=== PATIENT | male | born 1945 | race Caucasian/White ===

== ENCOUNTER 2017-01-07 09:15 | Outpatient (CLI) | payer MEDICARE ==
--- NOTE | 2017-01-07 15:03 | NM ---
RADIONUCLIDE BONE SCAN: Date: 01/07/17 HISTORY: Prostate cancer. Back pain. Abnormal MRI. COMPARISON: 07/08/13. FINDINGS: Heterogeneous uptake is present throughout the shoulders and spine. Uptake at the left lower cervica l spine on the previous exam is much less pronounced on the current study. In region of abnormality described at the lumbar spine and thoracic spine on report from recent MRI from [place] dated 12/13/16, no abnormal uptake is apparent to suggest metastatic disease. Those dustin ges are not available for direct correlation. IMPRESSION: No scintigraphic evidence of skeletal metastasis. POS: SANDY
== END 2017-01-07 09:16 | disposition home or self-care (01) ==
LOC: NM 09:15
PROVIDERS: ATTEND Radiology Radiation Oncology
DX: C61 Malignant neoplasm of prostate (principal); C79.51 Secondary malignant neoplasm of bone; M54.9 Dorsalgia, unspecified
CPT/HCPCS: 78306; 80053; 82248; 83615; 84100; 84153; 84550; A9503; 36415

== ENCOUNTER 2017-04-02 06:58 | Outpatient (CLI) | payer MEDICARE ==
--- NOTE | 2017-04-02 11:43 | MRI ---
MRI LUMBAR SPINE WITHOUT CONTRAST: HISTORY: Metastatic prostate cancer to L4. COMPARISON: None. CORRELATION: Bone scan from 01/07/2017 and lumbar spine radiograph series from 08/31/2015. TECHNIQUE: A lumbar spine MRI is performed without intravenous Gadolinium administration. Multisequential, mult iplanar imaging is performed. FINDINGS: There is heterogeneous marrow signal intensity of the visualized distal thoracic vertebra, L1, L2, an d L3 vertebral bodies. No associated STIR signal hyperintensity. There is intrinsic T1 and T2 hyper intensity involving the inferior aspect of L3, the L4 vertebral body, and the majority of the L5 vert ebral body, as well as the visualized sacrum. No significant STIR hyperintensity. Post treatment ch alessandra is favored. There is no evidence of fracture. There is 6 mm of anterolisthesis of L4 upon L5. There is symmetric signal intensity of the psoas muscles. There is multiple hyperintensity of the le ft and right renal pelvis, compatible with bilateral parapelvic cysts or hydronephrosis. Evaluation is limited. The conus medullaris terminates at the mid L1 level. T12-L1: Adequate disk hydration. No significant central canal stenosis. the foramina are patent. L1-L2: Adequate disk hydration. No significant central canal stenosis. The foramina are patent. L2-L3: Adequate disk hydration. No significant central canal stenosis. The foramina are patent. L3-L4: Adequate disk hydration. No significant central canal stenosis. Mild facet hypertrophy. No significant central canal stenosis. The foramina are patent. L4-L5: Desiccation with mild loss of disk space height. Generalized disk bulge, ligamentum flavum t hickening, and facet hypertrophy result in mild central canal stenosis. The right subarticular zone is patent. Minimal narrowing of the left subarticular zone, secondary to disk material and post trau matic hypertrophy. Mass effect without complete obscuration of the traversing left L5 nerve root. T he right neural foramen is mildly narrowed. The left neural foramen is minimally narrowed. L5-S1: Disk desiccation without significant loss of disk space height. There is intrinsic T2 and ST IR hyperintensity along the posterior margin of the L5 disk, at the level of the disk bulge. A small annular fissure is favored. Minimal narrowing of both subarticular zones. Disk material abuts but does not obscure either traversing S1 nerve root. No high grade central canal stenosis. Moderate bi lateral foraminal narrowing. Probable small cyst posterior to the right lamina at L5, of no clinical significance. IMPRESSION: 1. Post treatment fatty marrow involving the L4 and L5 vertebral bodies and the visualized sacrum. 2. T1 marrow signal hypointensity of the upper lumbar spine and lower thoracic spine without associa mookie STIR hyperintensity. Findings are nonspecific. A bone scan performed in December 2016 was negati ve. 3. No evidence of a lumbar spine fracture. 4. Degenerative changes of the lumbar spine, as above. POS: OFF
== END 2017-04-02 06:59 | disposition home or self-care (01) ==
LOC: MRI 06:58
PROVIDERS: ATTEND Radiology Radiation Oncology
DX: C61 Malignant neoplasm of prostate (principal); C79.51 Secondary malignant neoplasm of bone; M47.816 Spondylosis without myelopathy or radiculopathy, lumbar region
CPT/HCPCS: 72148; 72158

== ENCOUNTER 2017-09-18 15:25 | Outpatient (CLI) | payer MEDICARE ==
--- NOTE | 2017-09-18 16:26 | RAD ---
ABDOMEN ONE VIEW: 09/18/17 HISTORY: Stones. Preop. COMPARISON: 09/16/17. FINDINGS: Nonspecific bowel gas pattern. Degenerative changes of the lumbar spine and hips. Multiple stones ove r the gallbladder lumen. A lobular 0.7 cm calculus just inferior to the right L2 transverse process correlates with the right ureteropelvic junction calculus seen on recent CT. Smaller calcifications over the right renal shadow are again demonstrated. IMPRESSION: 1. Right renal calculi. 2. Cholelithiasis. POS: SANDY
[2017-09-18 16:27] LABS: Platelet Count 151 thou/uL (130-400)
[2017-09-18 17:02] LABS: ADP 120 SEC (39-127)
[2017-09-18 17:03] LABS: ADP Status Message No Message
== END 2017-09-18 15:26 | disposition home or self-care (01) ==
LOC: LABBT 15:25
PROVIDERS: ATTEND Urology
DX: Z01.818 Encounter for other preprocedural examination (principal); N20.2 Calculus of kidney with calculus of ureter
CPT/HCPCS: 74018; 85576

== ENCOUNTER 2017-09-21 10:56 | Observation (INO) | payer MEDICARE ==
[2017-09-21] MEDS ORDERED: Ondansetron HCl/PF 4 MG/2 ML Vial ONE (11:05)
[2017-09-21 12:10] LABS: #Eosinphils 0.1 thou/uL (0.0-0.7); #Lymphocytes 0.6 thou/uL (1.20-3.40); #Monocytes 0.8 thou/uL (0.11-0.59); %Basophils 0.3 % (0.0-1.0); %Eosinophils 0.7 % (0.0-10.0); %Lymphocytes 5.8 % (21.0-51.0); %Monocytes 7.9 % (0.0-10.0); %Neutrophils 85.3 % (42.0-75.0); Mean Corpuscular Hemoglobin 33.8 pg (27.0-31.0); Mean Corpuscular Volume 96.6 fL (78.0-98.0); Platelet Count 235 thou/uL (130-400); RBC Distribution Width 17.9 % (11.5-14.5); Red Blood Cell (RBC) Count 3.84 mill/uL (4.70-6.10); White Blood Cell (WBC) Count 10.6 thou/uL (4.8-10.8)
[2017-09-21 12:29] LABS: ALT (SGPT) 19 U/L (8-55); AST (SGOT) 21 U/L (5-34); Albumin 3.9 g/dL (3.4-4.8); Alkaline Phosphatase 59 U/L (40-150); Anion Gap 15 mmol/L (10-20); BUN (Urea Nitrogen) 21 mg/dL (8.4-25.7); Bilirubin, Total 1.4 mg/dL (0.2-1.2); Calc. Creatinine Clearance 0 mL/min (70-130); Calcium 8.8 mg/dL (7.8-10.44); Carbon Dioxide 22 mmol/L (23-31); Chloride 106 mmol/L (98-107); Estimated GFR-MDRD 61; Globulin 3.8 g/dL (2.4-3.5); Glucose 154 mg/dL (83-110); Lipase 5 U/L (8-78); Potassium 4.4 mmol/L (3.5-5.1); Protein, Total 7.7 g/dL (5.8-8.1); Sodium 139 mmol/L (136-145)
[2017-09-21 12:52] LABS: Bilirubin Small (Negative); Blood, Urine Negative (Negative); Clarity CLEAR (Clear); Glucose, Urine (Dipstick) Negative (Negative); Leukocyte Negative (Negative); Nitrite Negative (Negative); Protein, Urine (Dipstick) 30 mg/dL (Neg-Trace); Specific Gravity, Urine 1.027 (1.002-1.036)
[2017-09-21 12:54] LABS: Bacteria/HPF None Seen HPF (None Seen); Hyaline Casts/LPF 0-3 HYALINE CAST LPF (0-3 Hyaline); Pathc Cast-AUWi Flag 0.14 (0-2.49); RBC/HPF 0-3 HPF (0-3); Squamous Epithelial 0-3 HPF (0-3); WBC/HPF 0-3 HPF (0-3)
[2017-09-21 13:04] LABS: Renal Epithelial None Seen HPF (0-3); Transitional Epithelial NONE SEEN HPF (0-3)
[2017-09-21 14:48] VITALS: BMI 30.8
[2017-09-21] MEDS ORDERED: Ondansetron HCl/PF 4 MG/2 ML Vial IVP PRN ×2 (14:49→18:04)
[2017-09-21] MEDS ORDERED: HYDROcodone/Acetaminophen 5/325 mg Tablet PO PRN ×4 (14:49→18:05)
[2017-09-21] MEDS ORDERED: Ondansetron ODT 4 MG TAB SL PRN ×2 (14:49→18:04)
--- NOTE | 2017-09-21 16:35 | HP ---
DATE OF ADMISSION: 09/21/2017 ADMITTING PHYSICIAN: Iraj Hernandez M.D. PRIMARY ATTENDING: Dr. Heladio Gaitan. CHIEF COMPLAINT: Right flank pain. HISTORY OF PRESENT ILLNESS: Mr. Armas is a 72-year-old white male, who initially presented to an e mergency room in [place] approximately 1-2 weeks ago. 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 A CT done there demonstrated a 7 mm right ureteral stone and he was discharged with a scheduled followup here. He has presented to [facility] ER once more. He followed up with his urologist, Dr. Gaitan, who evaluated his imaging and set him up for shock wave lithotripsy. This last Friday; however, the patient was apparently still taking h is aspirin and ibuprofen and therefore his surgery had to be postponed to Friday. During this time f rame, the patient has had a persistent right-sided pain, which will vary from a 3/10 up to a 10/10 an d has a constant throbbing in nature. He had been given hydrocodone, but states that made him nausea mookie and he was unable to take it regularly and it was not helping the pain completely anyways. He pr esented back to the emergency room today due to uncontrolled pain. He had been to the ER one time pr evious to this at [place] [facility] where he had a repeat CT scan again demonstrated the same 7 mm UPJ stone. On imaging there, a CT was not repeated on today's visit as he had had a recent imaging with the [facility] unchanged pain. He reports subjective chills, but no fevers. He has had nausea primarily seconda ry to the pain medication, but no significant vomiting. He is very frustrated with this entire cours e and states that he just wants something done. He is tired of dealing with this pain. On my discus kuldeep with the patient, he does not want any additional procedures, but only once one surgery to compl etely get rid of the stone. He denies any hematuria or difficulty with urination. He has had previo us stones in the past and has undergone prior shockwave lithotripsies in the past. PAST MEDICAL HISTORY: 1. Nephrolithiasis. 2. Prostate cancer, status post radiation. PAST SURGICAL HISTORY: 1. Hernia repair. 2. Shock wave lithotripsy. ALLERGIES: None. CURRENT MEDICATIONS: 1. Crestor. 2. Aspirin. 3. Calcium. 4. Vitamin D. 5. Coenzyme Q10. 6. Hydrocodone/acetaminophen. 7. Zofran. Note, patient is currently holding his aspirin per instruction by Dr. Gaitan. REVIEW OF SYSTEMS: A 12-point review of systems is unremarkable other than what was commented on the HPI. PHYSICAL EXAMINATION: VITAL SIGNS: Temperature 98.5, pulse 75, respirations 18, blood pressure 196/98, saturations 97% on room air, pain 8/10. GENERAL: Uncomfortable looks annoyed and frustrated, otherwise is conversing appropriately, answerin g questions. Well-nourished, well-developed, obese. HEENT: Normocephalic, atraumatic. Sclerae are nonicteric. Pupils are symmetric and round. Trachea midline. Moist mucous membranes. CHEST: No increased work of breathing. Symmetric expansion of the lungs. Clear to auscultation ant eriorly. CARDIOVASCULAR: Regular rate and rhythm. Normal S1 and S2. Symmetric pulses. ABDOMEN: Soft, nontender, nondistended, positive bowel sounds. No organomegaly. Protuberant belly. There is some left-sided flank tenderness. GENITOURINARY: Deferred at this time. EXTREMITIES: No clubbing, cyanosis or edema. MUSCULOSKELETAL: No joint deformities or joint erythema noted. Full range of motion. SKIN: Warm, dry, no rashes, good turgor, no pallor. NEUROLOGIC: Cranial nerves II-XII appear grossly intact. No focal, motor, or sensory deficits ident ified. PSYCHIATRIC: Alert and oriented x3, visibly upset and somewhat angry and also appears uncomfortable. IMAGING FINDINGS: CT demonstrates a partially obstruction at the right UPJ secondary to 7 mm right U PJ stone. There is subtle stranding around the left kidney. No evidence of obstruction, moderate sp lenomegaly, cholelithiasis, diverticulosis, and atherosclerosis. LABORATORY DATA: On laboratory evaluation, the patient's white count is currently 10.6 with a hemogl obin of 13, creatinine is currently 1.18. Urinalysis demonstrates small bilirubin, 80 ketones and 30 protein, but is actually negative for blood, negative nitrites, negative leukoesterase, no bacteria. UA from 09/16/2017 demonstrates 7-10 red cells. ASSESSMENT AND PLAN: A 72-year-old white male with a right 7 mm UPJ stone, currently plan for shock wave lithotripsy on Friday with Dr. Gaitan. He is currently complaining of uncontrolled pain with hi s oral pain medication regimen. I offered the patient a ureteral stent and he was visibly upset at t his, stating that he would rather have the stone removed. I told him it was not possible to remove t he stone today as we do not have lithotripter machine on standby at the hospital, nor do we have the laser in the hospital on standby to perform ureteroscopy and laser lithotripsy. As such, he refused a ureteral stent, stating that he does not want to have any additional procedures and is tired of jair ng let around in circles. He does not want to take any stronger pain medications. He states it is m aking him nauseated. The final option was for him to stay in the hospital for IV pain control and IV antiemetics to keep him controlled until his procedure could be done tomorrow morning. After discus sing this with the patient, he states that would be fine and his daughter was in agreement. Therefor e, I will have him admitted under Dr. Gaitan with pain and nausea medications with plans to be n.p.o. after midnight with IV fluids and he can undergo his procedure in the morning, after which Dr. Micheal perez can resume care and coordinated disposition accordingly. PLAN: 1. A regular diet for now, n.p.o. after midnight. 2. IV fluids at midnight. 3. IV morphine for pain control. Hydrocodone for oral pain control. 4. Antiemetics with Zofran and Phenergan. 5. Regular activity. 6. To operating room in the morning as is currently scheduled with Dr. Gaitan for extracorporal shoc kwave lithotripsy. 7. Hold aspirin and no anti-inflammatories, NSAIDs, or Toradol are to be given as they will contrain dicated with schedule ESWL tomorrow.
[2017-09-21] MEDS ORDERED: Lactated Ringer's 1,000 ML IV SCH ×3 (18:15→23:59)
[2017-09-21] MEDS ORDERED: Fleet Enema 133 ML BOT PR SCH (18:15)
[2017-09-21] MEDS ORDERED: Rosuvastatin 5 MG TAB PO SCH (21:00)
[2017-09-22] MEDS ORDERED: Iothalamate Meglumine 60% 50 ML VIAL FS ONE (06:34)
[2017-09-22] MEDS ORDERED: Fentanyl 100 MCG/2 ML VIAL ONE (06:43)
[2017-09-22] MEDS ORDERED: Phenylephrine HCL 10 MG/ML VIAL ONE (07:06)
[2017-09-22 07:51] LABS: Platelet Count 172 thou/uL (130-400)
[2017-09-22 08:22] LABS: ADP 116 SEC (39-127); ADP Status Message No Message
--- NOTE | 2017-09-22 08:26 | RAD ---
ABDOMEN 1 VIEW: Date: 09/22/17 HISTORY: 72-year-old male with history of right ureteral stone. COMPARISON: 09/18/17. FINDINGS: Again noted is an approximately 0.6 cm diameter calculus at the level of the L2 right transverse proc ess. Multiple gallstones. Gas and fecal material in the colon. IMPRESSION: Stable right ureteral calculus, unchanged from prior study. POS: OFF
[2017-09-22] MEDS ORDERED: Polyethylene Glycol 3350 17 GM Packet PO SCH (09:00)
[2017-09-22] MEDS ORDERED: Allopurinol 300 MG TAB PO SCH (09:00)
[2017-09-22] MEDS ORDERED: Calcium Carbonate 600 MG TAB PO SCH (09:00)
[2017-09-22] MEDS ORDERED: Ubidecarenone 50 MG CAP PO SCH (09:00)
[2017-09-22 13:44] VITALS: TEMP 98.6
[2017-09-22 13:45] VITALS: BP 132/70
[2017-09-22] MEDS ORDERED: Ondansetron HCl/PF 4 MG/2 ML Vial ONE (15:06)
[2017-09-22] MEDS ORDERED: PROPOFOL 200 MG/20 ML VIAL ONE (15:06)
[2017-09-22] MEDS ORDERED: Lidocaine 1% PF 5 ML VIAL ONE (15:06)
[2017-09-22] MEDS ORDERED: Dexamethasone 20 MG/5 ML VIAL ONE (15:06)
--- NOTE | 2017-09-22 21:38 | OP ---
DATE OF PROCEDURE: 09/22/2017 PREOPERATIVE DIAGNOSIS: Right proximal ureteral stone. POSTOPERATIVE DIAGNOSIS: Right proximal ureteral stone. PROCEDURE PERFORMED: Right ESWL. SURGEON: Dr. Heladio Gaitan. ANESTHETIC: General. ESTIMATED BLOOD LOSS: Not recorded. FINDINGS: There is a 7 mm proximal right ureteral stone that was treated with a total of 2600 shocks , 1500 at level 4, and 1100 at level 5. The stone did appear to fragment well. A stent was not plac ed. OPERATIVE TECHNIQUE: After obtaining written and verbal consent from the patient and after documenti ng a platelet function assay with epi of 200 with ATP that was normal. In discussing this with Dr. Abdelrahman mcelroy as well as with the patient, we elected to proceed with the procedure. The reason we discusse d this was that a normal value for the epi is 199 to less and this is 200. Last week received Torado l and has been on aspirin and Motrin, stopped it 4 days ago, talked with Dr. Iniguez first as he has been treating him for metastatic prostate cancer and he felt that the patient with a PSA of 200 was a n acceptable risk. He thought it was significantly abnormal we could treat him with a platelet trans fusion, but did not feel like that would be necessary and I agreed with him. They talked with the [facility] about this giving him the option of either treating him today or waiting another couple of days off of the nonsteroidals and aspirin to let this correct further, but he has been miserable and in p ain and is not desiring a stent and was acceptable slight risk for bleeding related to this. He was taken to the operating suite. He was placed in supine position on the treatment table. PlexiPulses were placed on his lower extremities. He was given a general anesthetic and oral obturator intubatio n. The stone was easily seen and he was the lithotripter unit. The stone was placed in the [facility] ent focal point. Shockwave therapy was commenced with very low kV. After a couple 100 shocks, 5-min issa pause was given and then it was restarted and brought to level 4, then the last 1100 shocks at le kary 5. The stone did appear to fragment well. Stent was not placed. Although we probably would not pass a stent as the patient refused anyway. At this point, he was awakened, he was extubated, and taken by stretcher to the recovery room.
== END 2017-09-22 13:34 | disposition home or self-care (01) ==
LOC: ERS 10:56 → SURG A 14:24
PROVIDERS: ADMIT Urology; ATTEND Urology
PROC: 0TF6XZZ Fragmentation in Right Ureter, External Approach (ICD-10-PCS; principal; 2017-09-22)
DX: N20.1 Calculus of ureter (principal); Z79.82 Long term (current) use of aspirin; Z79.899 Other long term (current) drug therapy
CPT/HCPCS: 50590; 74018; 80053; 83605; 83690; 85025; 85576 ×2; 87040; 87086; 96361; 96374; 96375; 96376 ×2; 99285; G0378; 36415; 81003; 81015; J1100; J2001; J2270; J2370; J2405; J2704; J3010; Q9961

== ENCOUNTER 2017-10-06 05:43 | Day surgery (SDC) | payer MEDICARE ==
[2017-10-03 12:48] VITALS: BMI 30.2
[2017-10-06] MEDS ORDERED: Midazolam HCl 2 mg/2 ml Vial ONE (06:20)
[2017-10-06] MEDS ORDERED: Fentanyl 100 MCG/2 ML VIAL ONE (06:20)
[2017-10-06] MEDS ORDERED: Iothalamate Meglumine 60% 50 ML VIAL FS ONE (06:54)
[2017-10-06] MEDS ORDERED: CEFAZOLIN/Water 2 GM/20 ML SYRINGE ONE (07:04)
--- NOTE | 2017-10-06 09:35 | OP ---
DATE OF PROCEDURE: 10/06/2017 PREOPERATIVE DIAGNOSIS: Right renal stone, right ureteral stent. POSTOPERATIVE DIAGNOSIS: Right renal stone, right ureteral stent. PROCEDURE PERFORMED: Right ESWL, cystoscopy and removal of right stent. SURGEON: Dr. Heladio Gaitan. ANESTHETIC: General. ESTIMATED BLOOD LOSS: Not recorded. FINDINGS: He had about a 6 mm stone actually, one of the largest was 6 mm, had a little fragment adj acent to a smaller, was treated with 2500 shocks at a maximum level of 5. It did appear to fragment well which is not saying that it did for sure as it was in his proximal ureter a couple of weeks ago and it looked like it had fragmented well them, but he was left with a 6 mm fragment and then require d a stent placement which pushed the stone from the proximal ureter back into the right lower pole co llecting system. He had no evidence of any stones along the course of the ureter and the stent was r emoved. OPERATIVE TECHNIQUE: After obtaining written and verbal consent from the patient after receiving IV antibiotics, he was taken to the operating suite. He was placed in the supine position on the [facility] ent table. PlexiPulses were placed on his lower extremities and turned on. He was given a general a nesthetic and oral intubation. He was coupled to the lithotripter unit. The stone was placed in emma atment focal point. Shockwave therapy was commenced. After a couple 100 shocks, he was given a 5 mi nute pause. He was then restarted with ESWL and a level was brought to level 5. Fluoroscopy was use d intermittently to document stone fragmentation and positioning and repositioning as necessary. It certainly appeared that this stone did break up into fragments as it did spread out. After 2500 shoc ks he was carefully placed in dorsal lithotomy position, sterilely prepped and draped. Cystoscopy wa s performed with a 20-Greek sheath. This was well lubricated, passed under direct vision through th e male urethra into the bladder. The bladder was filled and emptied a number of times. There was so me blood in the urinary bladder as expected after ESWL. The distal end of the stent was grasped with a pair of flexible grasping forceps and was removed intact. The ureter was examined with the fluoro scopy unit after this, there was no evidence of any fragments in the ureter. The patient was taken o ut of dorsal lithotomy position, awakened, extubated, and taken by stretcher to the recovery room.
--- NOTE | 2017-10-06 10:28 | RAD ---
TWO VIES FROM A KUB: INDICATION: Right renal stone. COMPARISON: Prior exam dated 09/22/17. FINDINGS: The previously seen 5.7 mm stone within the region of the proximal right UPJ has been displaced into the inferior pole of the right kidney. The additional inferior pole calculus measuring 4.7 mm is sta ble. Gallstones are seen within the right upper quadrant. Right ureteral stent projects in the expe cted position. Bowel gas pattern is unobstructed. There are scattered vascular calcifications. The re is scattered degenerative change. IMPRESSION: 1. Interval displacement of the previously seen right ureteropelvic junction stone into the inferior pole of the right kidney. The 5 mm stone involving the inferior pole right kidney is stable. 2. Stable cholelithiasis. 3. Right ureteral stent projects in the expected position. POS: SANDY
[2017-10-06] MEDS ORDERED: Lidocaine 1% PF 5 ML VIAL ONE (12:26)
[2017-10-06] MEDS ORDERED: PROPOFOL 200 MG/20 ML VIAL ONE (12:26)
[2017-10-06] MEDS ORDERED: Dexamethasone 20 MG/5 ML VIAL ONE (12:26)
[2017-10-06] MEDS ORDERED: Ondansetron HCl/PF 4 MG/2 ML Vial ONE (12:26)
[2017-10-06] MEDS ORDERED: ePHEDrine/0.9% NaCl/PF SYRINGE 50 mg/10 ml ONE (12:26)
== END 2017-10-06 10:38 | disposition home or self-care (01) ==
LOC: SDC 05:43
PROVIDERS: ATTEND Urology
PROC: 0TF3XZZ Fragmentation in Right Kidney Pelvis, External Approach (ICD-10-PCS; principal; 2017-10-06)
PROC: 0TP98DZ Removal of Intraluminal Device from Ureter, Via Natural or Artificial Opening Endoscopic (ICD-10-PCS; 2017-10-06)
DX: N20.0 Calculus of kidney (principal); Z79.899 Other long term (current) drug therapy
CPT/HCPCS: 74018; J2250; J3010; Q9961

== ENCOUNTER 2017-10-06 21:26 | Inpatient (IN) | payer MEDICARE ==
[2017-10-06 22:30] LABS: #Eosinphils 0.1 thou/uL (0.0-0.7); #Lymphocytes 1.1 thou/uL (1.20-3.40); #Monocytes 0.9 thou/uL (0.11-0.59); #Neutrophils 8.7 thou/uL (1.40-6.50); %Basophils 0.1 % (0.0-1.0); %Eosinophils 0.6 % (0.0-10.0); %Lymphocytes 9.9 % (21.0-51.0); %Monocytes 8.2 % (0.0-10.0); %Neutrophils 81.2 % (42.0-75.0); Mean Corpuscular HGB CONC 36.1 g/dL (32.0-36.0); Mean Corpuscular Hemoglobin 34.8 pg (27.0-31.0); Mean Corpuscular Volume 96.2 fL (78.0-98.0); Mean Platelet Volume 7.4 fL (7.4-10.4); Platelet Count 212 thou/uL (130-400); RBC Distribution Width 18.2 % (11.5-14.5); Red Blood Cell (RBC) Count 2.87 mill/uL (4.70-6.10); White Blood Cell (WBC) Count 10.6 thou/uL (4.8-10.8)
[2017-10-06] MEDS ORDERED: Fentanyl 100 MCG/2 ML VIAL ONE (23:31)
[2017-10-07 02:55] VITALS: BMI 30.8
[2017-10-07] MEDS ORDERED: Ondansetron HCl/PF 4 MG/2 ML Vial IVP PRN ×2 (03:14→08:33)
[2017-10-07] MEDS ORDERED: Acetaminophen 325 MG TAB PO PRN (03:14)
[2017-10-07] MEDS ORDERED: Fentanyl 100 MCG/2 ML VIAL SLOW IVP PRN (03:14)
[2017-10-07] MEDS ORDERED: Ondansetron ODT 4 MG TAB SL PRN (03:14)
[2017-10-07] MEDS ORDERED: Senokot 8.6 MG TAB PO PRN (08:33)
[2017-10-07] MEDS ORDERED: Sodium Chloride 0.65% Nasal 44 ML BOT EA NARE PRN (08:33)
[2017-10-07] MEDS ORDERED: Chloraseptic Spray 180 ml Bottle PO PRN (08:33)
[2017-10-07] MEDS ORDERED: Ondansetron ODT 4 MG TAB PO PRN (08:33)
[2017-10-07] MEDS ORDERED: Milk Of Magnesia 30 ML UDCUP PO PRN (08:33)
[2017-10-07] MEDS ORDERED: Artificial Tears 18 DROP/0.9 ML EA EYE PRN (08:33)
[2017-10-07] MEDS ORDERED: Zolpidem Tartrate 5 MG TAB PO PRN (08:33)
[2017-10-07] MEDS ORDERED: Loratadine 10 MG TAB PO PRN (08:33)
[2017-10-07] MEDS ORDERED: hydrALAZINE 20 MG/ML VIAL SLOW IVP PRN (08:33)
[2017-10-07] MEDS ORDERED: Mag-Al 1200 mg/1200 mg/30 ML UDCUP PO PRN (08:33)
[2017-10-07] MEDS ORDERED: Loperamide HCl 2 MG CAP PO PRN (08:33)
[2017-10-07] MEDS ORDERED: Diabetic Tussin 200 MG/10 ML UDCUP PO PRN (08:33)
[2017-10-07] MEDS ORDERED: Eucerin (Mineral Oil/Petrolatum,White) 30 gm Jar TOP PRN (08:33)
[2017-10-07] MEDS ORDERED: D5 1/2 NS w/10 mEq KCl 1,000 ML/1,000 ML BAG IV SCH (09:30)
[2017-10-07 09:32] LABS: Hemoglobin 8.2 g/dL (14.0-18.0); INR-International Normal Ratio 1.3; Mean Corpuscular HGB CONC 34.3 g/dL (32.0-36.0); Mean Corpuscular Hemoglobin 33.6 pg (27.0-31.0); Mean Corpuscular Volume 97.9 fL (78.0-98.0); Mean Platelet Volume 7.3 fL (7.4-10.4); PTT 30.8 SEC (22.9-36.1); Platelet Count 150 thou/uL (130-400); RBC Distribution Width 18.2 % (11.5-14.5); Red Blood Cell (RBC) Count 2.45 mill/uL (4.70-6.10); White Blood Cell (WBC) Count 6.3 thou/uL (4.8-10.8)
[2017-10-07 09:38] LABS: Platelet Count 150 thou/uL (130-400)
[2017-10-07] MEDS: Calcium Carbonate 600 MG TAB PO SCH (10:00)
[2017-10-07] MEDS: Famotidine 20 MG TAB PO SCH ×2 (10:00→20:29)
[2017-10-07] MEDS: Sodium Chloride 0.9% 1,000 ML IV SCH ×2 (10:00→20:28)
[2017-10-07] MEDS: Ubidecarenone 50 MG CAP PO SCH (10:00)
[2017-10-07] MEDS: Tamsulosin HCl 0.4 MG CAP PO SCH (10:00)
[2017-10-07] MEDS: Rosuvastatin 5 MG TAB PO SCH (10:09)
[2017-10-07] MEDS: HYDROcodone/Acetaminophen 5/325 mg Tablet PO PRN ×2 (10:25→19:02)
--- NOTE | 2017-10-07 11:03 | HP ---
PRIMARY CARE PHYSICIAN: Dr. Laura Mckeon. REASON FOR ADMISSION: Hematuria, intractable pain after extracorporeal shock wave lithotripsy yesterday. HISTORY OF PRESENT ILLNESS: A 72-year-old male, who initially went to [facility] yesterday evening for acute onset of flank pain on the right side. Patient has history of nephrolithiasis for the last several weeks and he is experiencing on and off flank pain. The patient had yesterday urologic procedure by Dr. Gaitan. On 10/06/2017 in the morning time, patient underwent right-sided extracorporeal shock wave lithotripsy, cystoscopy and removal of the stent on the right side. Patient went home and subsequently after noon time , he was having unbearable pain and that is why he required to go to local emergency room. The patient had CT abdomen and pelvis at [facility] , which showed lithotripsy changes with a moderate size right perinephric space hematoma and a large subcapsular renal hemorrhage. There was multiple right- sided renal calculi as well as cholelithiasis, moderate sized inguinal hernia, and diverticulosis of sigmoid colon. The patient denies any constipation, melena, or hematochezia. He denies any fever or chills. He does report hematuria. He denies any nausea or vomiting. He denies any chest pain, palpitation, shortness of breath. At [facility], he was given [place] and Zofran and subsequently he was transferred to our hospital. When he came to emergency room here, at that time, he was hemodynamically stable, afebrile. He was given fentanyl 50 mcg IV fluid and subsequently he was admitted to medical floor. This morning I saw, at that time, patient was feeling a little bit better. His pain was well tolerable. His hematuria is also clearing up, but he still has flank pain on the right side about 3/10 in intensity. The patient requested that he wanted to get second opinion from urologist. REVIEW OF SYSTEMS: The following complete review of systems was negative, unless otherwise mentioned in the HPI or below: Constitutional: Weight loss or gain, ability to conduct usual activities. Skin: Rash, itching. Eyes: Double vision, pain. ENT/Mouth: Nose bleeding, neck stiffness, pain, tenderness. Cardiovascular: Palpitations, dyspnea on exertion, orthopnea. Respiratory: Shortness of breath, wheezing, cough, hemoptysis, fever or night sweats. Gastrointestinal: Poor appetite, abdominal pain, heartburn, nausea, vomiting, constipation, or diarrhea. Genitourinary: Urgency, frequency, dysuria, nocturia. Musculoskeletal: Pain, swelling. Neurologic/Psychiatric: Anxiety, depression. Allergy/Immunologic: Skin rash, bleeding tendency. Please see my HPI for pertinent positive and negative. All other review of systems reviewed and negative except as mentioned in the HPI. CURRENT HOME MEDICATIONS: Aspirin 81 mg p.o. daily, calcium 600 mg p.o. daily, vitamin D3 at 2000 unit p.o. daily, Macrobid 100 mg p.o. at bedtime, Crestor 5 mg p.o. daily, Flomax 0.4 mg p.o. daily, and Coenzyme Q10 at 100 mg p.o. daily. PAST MEDICAL HISTORY: 1. Nephrolithiasis, required several shock wave lithotripsy, history of prostate cancer status post radiation and prostatectomy. The patient is getting every 4-month of Lupron, and Xgeva treatment monthly basis. 2. Dyslipidemia on Crestor. 3. Vitamin D deficiency. 4. Obesity with BMI 30. 5. Metastatic prostate cancer with metastasis to L4 spine. PAST SURGICAL HISTORY: Hernia repair. Per patient, he had a couple of times extracorporeal shock wave lithotripsy. The patient also had prostatectomy. PAST PSYCHIATRIC HISTORY: Reviewed and negative. SOCIAL HISTORY: The patient drinks alcohol socially. He denies any smoking. He denies any other illicit drug abuse. He lives at home by himself. FAMILY HISTORY: No strong family history of premature coronary artery disease, stroke or cancer. ALLERGIES: No known drug allergy. EMERGENCY ROOM COURSE: The patient was given [place] and IV fluid at [facility]. The patient is given another IV fluid in our emergency room and fentanyl 50 mcg. PHYSICAL EXAMINATION: VITAL SIGNS: Currently, blood pressure 139/92, pulse 86, respiratory rate 16, temperature 98.4, saturation 95% on room air, weight 106.5 kilograms. GENERAL: Patient is currently alert, awake, no obvious acute distress. HEENT: Head: Normocephalic, atraumatic. Eyes: Pupils round, reactive to light. Extraocular muscle intact. ENT: Oropharynx within normal limit. Moist mucous membranes. No oral lesion, no pharyngeal erythema, no exudate. NECK: Supple, no JVD, no thyromegaly, no carotid bruit, no jugular venous distention. LUNGS: Clear to auscultation without any rhonchi or rales. CARDIAC: S1 and S2 regular. No murmur, no gallop, no rub. ABDOMEN: Patient does have right-sided flank tenderness and right-sided mild CVA discomfort, no peritoneal sign, no guarding, no rigidity, no rebound. BACK: Patient does have mild discomfort on the right cerebrovascular accident. EXTREMITIES: Upper extremity passive movement of all joints are normal. Lower extremity, trace lower extremity pitting edema noted. Good distal pulsation. SKIN: No skin rash. HEMATOLOGICAL: No lymphadenopathy. PSYCHIATRIC: Normal affect. NEUROLOGIC: Nonfocal examination. He moves all 4 limbs. His gait is normal. SIGNIFICANT LABORATORY DATA: CT of the abdomen and pelvis done at [facility] showing lithotripsy changes with moderate size right perinephric space hematoma and large subcapsular renal hemorrhage with mass effect along right renal parenchyma, multiple right-sided renal calculi, cholelithiasis, moderate size inguinal hernia, moderate diverticular disease of sigmoid colon. CBC: WBC 10.6, hemoglobin 10.0, platelet 212. Current hemoglobin repeat one is 8.2. INR 1.3. BMP: Sodium 138, potassium 4.3, chloride 108, carbon dioxide 20, BUN 20, creatinine 1.26, glucose 171, calcium 8.2. LFT: AST 16, ALT 16, alkaline phosphatase 43, albumin 3.3. Lactic acid 2.8 and then 1.8. Urinalysis suggestive of hematuria. ASSESSMENT AND PLAN: 1. Right-sided nephrolithiasis, required couple of times extracorporeal shock wave lithotripsy with the most recent procedure yesterday. 2. Intractable right-sided flank pain after shock wave lithotripsy, now pain is under control with the pain medication. 3. Gross hematuria likely due to shock wave lithotripsy gradually resolving. 4. Anemia due to blood loss. His hemoglobin has dropped from 10 to 8.2. 5. Lactic acidosis, likely due to volume depletion and resolved does not have any clinical signs of infection at this point. 6. Moderate size right perinephric space hematoma and large subcapsular renal hemorrhage with mass effect on the renal parenchyma on the right side. Urology consulted. This may be related with lithotripsy changes. 7. Still patient has multiple right-sided renal calculi. 8. Asymptomatic cholelithiasis. 9. Sigmoid colon diverticulosis. 10. Hypertension, not on any specific treatment. 11. Dyslipidemia on Crestor. 12. History of prostate cancer with metastasis. The patient is on Lupron every 4 months and Xgeva treatment of monthly basis. Continue Flomax 0.4 mg p.o. daily. 13. Deep venous thrombosis prophylaxis not needed because we are expecting discharge in 24 hours based on Urology recommendation. 14. Gastrointestinal prophylaxis, Pepcid 20 mg p.o. b.i.d. 15. Code status: The patient is FULL CODE. Patient does not have any surrogate decision maker. 16. Disposition plan based on clinical course. Plan: Urology has been consulted. We will continue with IV fluid. I spoke with the patient to keep urine sample. Each time he was to monitor his level of hematuria. Further decision and investigation will defer to Urology. We will repeat labs tomorrow. We will observe him today and we will control his pain with morphine p.r.n. basis and [place] p.r.n. basis. Plan of care discussed with the patient in detail. MTDD
--- NOTE | 2017-10-07 16:41 | CON ---
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 He had a proximal right ureteral stone with colic. We attempted to get him treated on 09/19/2017, however, because of Toradol and Motrin use, his platelet function studies were severely abnormal, so we treated him three days later. His platelet function and basic had nearly normalized and speaking with his Hematology Oncologist, Dr. Iniguez felt he was safe to be shock waved, which we did; did not want a stent at that time, was adamant about it. The s tone appeared to have fragmented but he had continued colic over the next few days and required an em ergent stent for that. He was then given the option of repeat ESWL with the stone had dropped into t he lower pole of the kidney or ureteroscopy. I thought the ureteroscopy would be difficult on him. 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 He elected further repeat ESWL and removal of the stent as the stone was in the lower pole. We waited 2 weeks which is the minimum we could wait, talked about waiting longer, he, however, wanted to get this done at the earliest we could, so we emma ated him yesterday. He was doing fine for the first few hours after the procedure. I saw him in rec overy room. He was feeling fine and then in the afternoon, started having pain, called the office. We called him with some pain medicine probably was passing a fragment or perhaps a blood clot. We we nt into the ER at [place] and had a noncontrast contrast CAT scan shows a moderate sized subcapsular hematoma, probably a little bit of perinephric hematoma. He has stones that appear to be in fragmen ts now in the renal collecting system. He does not have any evidence of a ureteral stone, actually a ppears to have less hydro than he has in his last CT scan. Hemoglobin was 9.3 yesterday evening and 10 following that. He has not had one drawn yet this morning. His creatinine was 1.2. He has not been getting any fluids. His vital signs are stable. He is not tachycardic. He has not been placed on any blood thinners. He is getting pain medicine. He appears more comfortable right n ow than he was described when he came into the ER. His exam, he does not have any rebound or guardin g on his abdominal exam. He is urinating. His urine is still bloody off and on. So I do not think he is obstructed. I think he needs a stent at this time. He has been a patient that has been diffic ult to care for in regard to his complaints throughout this whole process and he indicated today he d id not want to use me as a physician and I told him that I would be physician because I had acquired him through the emergency room and had operated on him for these problems that he has unless he can f ormally established care with a urologist that is willing to take up his care and if he wish to do th at, he would need to do this with the Hospitalist and have them help him do this. I told him that, h owever, I will be happy to continue the care for him and I went through all that we have done from [facility] all the things that we have done to try to help him and indicated that currently now he is not tryi ng to pass a stone, but he has had a perirenal and perinephric hematoma and that is why he is having pain, like him to stay in bed, but he is getting up to use the bathroom. We will place Plexi-Pulses on his lower extremities. We will check platelet function assay. Again if it is abnormal, we may as k Dr. Iniguez to come by and see him. We will also check coags and make sure that he is at least typ ed and screened. I have also written for him to start a low rate of IV fluid.
[2017-10-07] MEDS: Nitrofurantoin Monohyd/M-Cryst 100 MG CAP PO SCH (20:31)
[2017-10-08] MEDS: Acetaminophen 325 MG TAB PO PRN ×2 (02:43→16:30)
--- NOTE | 2017-10-08 05:24 | CON ---
DATE OF CONSULTATION: 10/07/2017 REASON FOR CONSULTATION: Right-sided flank pain, subcapsular hematoma. HISTORY OF PRESENT ILLNESS: Mr. Armas is a 72-year-old gentleman status post ESWL on 10/06/2017. He had an uneventful case for a right-sided stone. In addition, the right ureteral stent that had be en previously placed was grasped and removed during the procedure. He developed rather significant f lank pain and presented to an outside facility. CT scan demonstrated right subcapsular hematoma and some perinephric fluid consistent with blood. He was hemodynamically stable and although his hemoglo bin had dropped, it was still in the acceptable range. He was transferred to [facility] for further evaluation and care. He had a gross hematuria, but no problems urinating. Denies fever or chills. Other significant urologic history is that of metastatic prostate cancer. PAST MEDICAL HISTORY: Metastatic prostate cancer, dyslipidemia, kidney stones. CHRONIC MEDICATIONS: Aspirin, calcium, vitamin D, Macrobid, Crestor, Flomax, Coenzyme Q, Lupron. PAST SURGICAL HISTORY: Radiation therapy for prostate cancer, hernia repair, lithotripsies for stone disease. SOCIAL HISTORY: He drinks alcohol on a social basis. Denies smoking. FAMILY HISTORY: Noncontributory. ALLERGIES: No known drug allergies. PHYSICAL EXAMINATION: GENERAL: He is awake and alert. He is in no distress at this time. HEENT: Normocephalic, atraumatic. NECK: Supple without masses. CHEST: Clear to auscultation. CARDIOVASCULAR: Regular rate and rhythm. ABDOMEN: Soft, nontender. No palpable masses. Liver and spleen are palpable. No abdominal tendern ess noted. LABORATORY DATA: Hemoglobin 10 in the morning and 8.2 most recently. Creatinine 1.26. IMPRESSION: Right subcapsular hematoma and perinephric bleeding, status post extracorporeal shock wa ve lithotripsy. He has a slightly elevated INR, but platelet function is normal. He is hemodynamica lly stable. There is no evidence of obstructive uropathy. I do not recommend any intervention at th is time. I have also discussed this case with Dr. Gaitan, and I am in agreement with his management plan. The patient initially had considered changing urologist, but has opted to stay with Dr. Gaitan . RECOMMENDATIONS: Agree with Dr. Gaitan's assessment. He will continue care.
[2017-10-08 05:33] LABS: #Eosinphils 0.1 thou/uL (0.0-0.7); #Lymphocytes 0.9 thou/uL (1.20-3.40); #Monocytes 0.6 thou/uL (0.11-0.59); #Neutrophils 4.4 thou/uL (1.40-6.50); %Basophils 0.1 % (0.0-1.0); %Eosinophils 1.3 % (0.0-10.0); %Lymphocytes 14.7 % (21.0-51.0); %Monocytes 9.7 % (0.0-10.0); %Neutrophils 74.2 % (42.0-75.0); Hemoglobin 7.3 g/dL (14.0-18.0); Mean Corpuscular HGB CONC 33.6 g/dL (32.0-36.0); Mean Corpuscular Hemoglobin 32.5 pg (27.0-31.0); Mean Corpuscular Volume 96.6 fL (78.0-98.0); Platelet Count 128 thou/uL (130-400); RBC Distribution Width 17.8 % (11.5-14.5); Red Blood Cell (RBC) Count 2.26 mill/uL (4.70-6.10); White Blood Cell (WBC) Count 5.9 thou/uL (4.8-10.8)
[2017-10-08 05:40] LABS: Anion Gap 11 mmol/L (10-20); BUN (Urea Nitrogen) 15 mg/dL (8.4-25.7); Calc. Creatinine Clearance 103 mL/min (70-130); Calcium 7.5 mg/dL (7.8-10.44); Carbon Dioxide 24 mmol/L (23-31); Chloride 108 mmol/L (98-107); Estimated GFR-MDRD 75; Glucose 129 mg/dL (83-110); Potassium 4.5 mmol/L (3.5-5.1); Sodium 138 mmol/L (136-145)
[2017-10-08] MEDS: Sodium Chloride 0.9% 1,000 ML IV SCH (06:14)
[2017-10-08] MEDS: Rosuvastatin 5 MG TAB PO SCH ×2 (09:00→09:30)
[2017-10-08] MEDS: Ubidecarenone 50 MG CAP PO SCH ×2 (09:00→09:29)
[2017-10-08] MEDS: Tamsulosin HCl 0.4 MG CAP PO SCH ×2 (09:00→09:28)
[2017-10-08] MEDS: Famotidine 20 MG TAB PO SCH ×3 (09:00→20:43)
[2017-10-08] MEDS ORDERED: Fleet Enema 133 ML BOT FS SCH (09:45)
[2017-10-08] MEDS: Calcium Carbonate 600 MG TAB PO SCH (11:00)
[2017-10-08] MEDS ORDERED: Bisacodyl 5 MG TAB PO PRN (12:38)
[2017-10-08] MEDS ORDERED: Docusate 100 MG CAP PO PRN (12:38)
[2017-10-08 14:21] LABS: Hemoglobin 8.4 g/dL (14.0-18.0)
--- NOTE | 2017-10-08 14:40 | PDOC.PN ---
- Subjective Encounter Start Date: 10/08/17 Encounter Start Time: 14:40 Subjective: pt c/o constipation for 2 days. givem MOM & enema today w/o luck -: very upset & states that he would not comply w tretment provided -: redirected & calmed down after discussion w ongoing acute issues still passing blood in urine - Objective MAR Reviewed: Yes Result Diagrams: 10/08/17 14:00 10/08/17 05:12 Additional Labs: Laboratory Tests 10/07/17 09:07 INR 1.3 labs reviewed Phys Exam - Physical Examination Constitutional: NAD pale HEENT: PERRLA, moist MMs, sclera anicteric, oral pharynx no lesions Neck: no nodes, no JVD, supple, full ROM Respiratory: no wheezing, no rales, no rhonchi, clear to auscultation bilateral Cardiovascular: RRR, no significant murmur, no rub Gastrointestinal: soft, positive bowel sounds mild TTP diffusely and mild distension Musculoskeletal: no edema, pulses present Neurological: non-focal, normal sensation, moves all 4 limbs Psychiatric: normal affect, A&O x 3 Skin: no rash Dx/Plan (1) Acute blood loss anemia Code(s): D62 - ACUTE POSTHEMORRHAGIC ANEMIA Status: Acute (2) Subcapsular Hemorrhage of Kidney Status: Acute (3) Perinephric hematoma Code(s): S37.019A - MINOR CONTUSION OF UNSPECIFIED KIDNEY, INITIAL ENCOUNTER Status: Acute (4) Hematuria Code(s): R31.9 - HEMATURIA, UNSPECIFIED Status: Acute (5) Constipated Code(s): K59.00 - CONSTIPATION, UNSPECIFIED Status: Acute (6) Thrombocytopenia Code(s): D69.6 - THROMBOCYTOPENIA, UNSPECIFIED Status: Acute - Plan continue antibiotics, PT/OT, out of bed/ambulate, DVT proph w/SCDs repeat H/H better after stopping IVF -: pt w significant drop in Hb w persistant Hematuria & now Thrombocytopenia -: will change to Inpt. repeat labs in am -: transfuse to keep Hb >7. -: add prn lactulose.no N/V. * .Urology following as well * am labs Review of Systems - Review of Systems Constitutional: weakness, malaise. negative: fever, chills, sweats, other Eyes: negative: Pain, Vision Change, Conjunctivae Inflammation, Eyelid Inflammation, Redness, Other ENT: negative: Ear Pain, Ear Discharge, Nose Pain, Nose Discharge, Nose Congestion, Mouth Pain, Mouth Swelling, Throat Pain, Throat Swelling, Other Respiratory: negative: Cough, Dry, Shortness of Breath, Hemoptysis, SOB with Excertion, Pleuritic Pain, Sputum, Wheezing Cardiovascular: negative: chest pain, palpitations, orthopnea, paroxysmal nocturnal dyspnea, edema, light headedness, other Gastrointestinal: Constipation. negative: Nausea, Vomiting, Abdominal Pain, Diarrhea, Melena, Hematochezia, Other Genitourinary: Hematuria. negative: Dysuria, Frequency, Incontinence, Retention , Other Musculoskeletal: negative: Neck Pain, Shoulder Pain, Arm Pain, Back Pain, Hand Pain, Leg Pain, Foot Pain, Other Skin: negative: Rash, Lesions, Brett, Bruising, Other Neurological: negative: Weakness, Numbness, Incoordination, Change in Speech, Confusion, Seizures, Other - Medications/Allergies Allergies/Adverse Reactions: Allergies Allergy/AdvReac Type Severity Reaction Status Date / Time No Known Allergies Allergy Verified 10/07/17 02:49 Medications: Current Medications Acetaminophen (Tylenol) 650 mg PO Q4H PRN PRN Reason: Headache/Fever or Pain Last Admin: 10/08/17 02:43 Dose: 650 mg Hydrocodone Bitart/Acetaminophen ([place] 5/325) 1 tab PO Q4H PRN PRN Reason: Moderate Pain (4-6) Last Admin: 10/07/17 19:02 Dose: 1 tab Al Hydroxide/Mg Hydroxide (Maalox) 30 ml PO Q6H PRN PRN Reason: Heartburn or Indigestion Artificial Tears (Tears Naturale) 0 drop EA EYE PRN PRN PRN Reason: Dry Eyes Bisacodyl (Dulcolax) 10 mg PO DAILYPRN PRN PRN Reason: Constipation Calcium Carbonate (Caltrate) 600 mg PO DAILY [facility] Last Admin: 10/08/17 11:00 Dose: Not Given Cholecalciferol (Vitamin D3) 2,000 units PO DAILY [facility] Last Admin: 10/08/17 09:28 Dose: 2,000 units Coenzyme Q10 (Coenzyme Q10) 100 mg PO DAILY [facility] Last Admin: 10/08/17 09:29 Dose: 100 mg Docusate Sodium (Colace) 100 mg PO DAILYPRN PRN PRN Reason: Constipation Famotidine (Pepcid) 20 mg PO BID [facility] Last Admin: 10/08/17 09:29 Dose: 20 mg Guaifenesin (Robitussin Sf) 200 mg PO Q4H PRN PRN Reason: Cough Hydralazine HCl (Apresoline) 10 mg SLOW IVP Q4H PRN PRN Reason: Systolic BP > 180 Lactulose (Lactulose) 30 gm PO BID PRN PRN Reason: constipation Last Admin: 10/08/17 12:45 Dose: 30 gm Loratadine (Claritin) 10 mg PO DAILYPRN PRN PRN Reason: Sinus Symptoms Magnesium Hydroxide (Milk Of Magnesium) 30 ml PO DAILYPRN PRN PRN Reason: Constipation Last Admin: 10/07/17 17:54 Dose: 30 ml Mineral Oil/White Petrolatum (Eucerin Cream) 0 gm TOP BIDPRN PRN PRN Reason: Dry Skin Morphine Sulfate (Morphine) 2 mg SLOW IVP Q4H PRN PRN Reason: Severe Pain (7-10) Nitrofurantoin Macrocrystals (Macrobid) [address] [facility] Last Admin: 10/07/17 20:31 Dose: 100 mg Ondansetron HCl (Zofran Odt) 4 mg PO Q6H PRN PRN Reason: Nausea/Vomiting Ondansetron HCl (Zofran) 4 mg IVP Q6H PRN PRN Reason: Nausea/Vomiting Phenol (Chloraseptic [place] 180 Ml Bot) 0 ml PO PRN PRN PRN Reason: Sore Throat Rosuvastatin Calcium (Crestor) 5 mg PO DAILY [facility] Last Admin: 10/08/17 09:30 Dose: 5 mg Senna (Senokot) 2 tab PO HSPRN PRN PRN Reason: Constipation Sodium Chloride ([place] Nasal [place] 0.65%) 0 ml EA NARE QIDPRN PRN PRN Reason: Nasal Congestion Sodium Chloride (Flush - Normal Saline) 10 ml IVF Q12HR [facility] Sodium Chloride (Flush - Normal Saline) 10 ml IVF PRN PRN PRN Reason: Saline Flush Tamsulosin HCl (Flomax) 0.4 mg PO DAILY [facility] Last Admin: 10/08/17 09:28 Dose: 0.4 mg Zolpidem Tartrate (Ambien) 5 mg PO HSPRN PRN PRN Reason: Insomnia
[2017-10-08] MEDS: HYDROcodone/Acetaminophen 5/325 mg Tablet PO PRN (20:43)
[2017-10-08] MEDS: Nitrofurantoin Monohyd/M-Cryst 100 MG CAP PO SCH (20:47)
[2017-10-09] MEDS: Rosuvastatin 5 MG TAB PO SCH (09:02)
[2017-10-09] MEDS: Famotidine 20 MG TAB PO SCH ×2 (09:02→20:08)
[2017-10-09] MEDS: Ubidecarenone 50 MG CAP PO SCH (09:02)
[2017-10-09] MEDS: Tamsulosin HCl 0.4 MG CAP PO SCH (09:02)
[2017-10-09] MEDS: Calcium Carbonate 600 MG TAB PO SCH (09:02)
[2017-10-09 10:04] LABS: Hemoglobin 8.1 g/dL (14.0-18.0)
--- NOTE | 2017-10-09 13:23 | PDOC.PN ---
- Subjective Encounter Start Date: 10/09/17 Encounter Start Time: 13:21 Subjective: no new complaints.had 3 BM yesterday and small one today -: no more blood in urine but it is still dark -: no SR/dizziness - Objective MAR Reviewed: Yes Vital Signs & Weight: Vital Signs (12 hours) Temp Pulse Resp BP BP Pulse Ox 10/09/17 10:59 98.0 F 87 16 128/68 10/09/17 08:00 98.0 F 87 16 146/66 H 93 L 10/09/17 04:00 98.7 F 77 18 130/74 96 I&O: 10/08/17 10/09/17 10/10/17 06:59 06:59 06:59 Intake Total 1370 Output Total 600 Balance 770 Result Diagrams: 10/09/17 09:49 10/08/17 05:12 Additional Labs: labs reviewed Phys Exam - Physical Examination Constitutional: NAD pale HEENT: PERRLA, moist MMs, sclera anicteric, oral pharynx no lesions Neck: no nodes, no JVD, supple, full ROM Respiratory: no wheezing, no rales, no rhonchi, clear to auscultation bilateral Cardiovascular: RRR, no significant murmur Gastrointestinal: soft, non-tender, no distention, positive bowel sounds Musculoskeletal: no edema, pulses present Neurological: non-focal, normal sensation, moves all 4 limbs Psychiatric: normal affect, A&O x 3 Skin: no rash Dx/Plan (1) Acute blood loss anemia Code(s): D62 - ACUTE POSTHEMORRHAGIC ANEMIA Status: Acute Comment: h/h stable. (2) Subcapsular Hemorrhage of Kidney Status: Acute (3) Perinephric hematoma Code(s): S37.019A - MINOR CONTUSION OF UNSPECIFIED KIDNEY, INITIAL ENCOUNTER Status: Acute (4) Hematuria Code(s): R31.9 - HEMATURIA, UNSPECIFIED Status: Acute (5) Constipated Code(s): K59.00 - CONSTIPATION, UNSPECIFIED Status: Acute (6) Thrombocytopenia Code(s): D69.6 - THROMBOCYTOPENIA, UNSPECIFIED Status: Acute - Plan continue antibiotics, out of bed/ambulate, DVT proph w/SCDs H/H stable. hemodynamically stable. -: DC home when OK w Urology w close outpt follow up -: recheck labs in am * . Review of Systems - Review of Systems Constitutional: weakness. negative: fever, chills, sweats, malaise, other ENT: negative: Ear Pain, Ear Discharge, Nose Pain, Nose Discharge, Nose Congestion, Mouth Pain, Mouth Swelling, Throat Pain, Throat Swelling, Other Respiratory: negative: Cough, Dry, Shortness of Breath, Hemoptysis, SOB with Excertion, Pleuritic Pain, Sputum, Wheezing Cardiovascular: negative: chest pain, palpitations, orthopnea, paroxysmal nocturnal dyspnea, edema, light headedness, other Gastrointestinal: negative: Nausea, Vomiting, Abdominal Pain, Diarrhea, Constipation, Melena, Hematochezia, Other Genitourinary: negative: Dysuria, Frequency, Incontinence, Hematuria, Retention , Other Musculoskeletal: negative: Neck Pain, Shoulder Pain, Arm Pain, Back Pain, Hand Pain, Leg Pain, Foot Pain, Other Skin: negative: Rash, Lesions, Brett, Bruising, Other Neurological: negative: Weakness, Numbness, Incoordination, Change in Speech, Confusion, Seizures, Other - Medications/Allergies Allergies/Adverse Reactions: Allergies Allergy/AdvReac Type Severity Reaction Status Date / Time No Known Allergies Allergy Verified 10/07/17 02:49 Medications: Current Medications Acetaminophen (Tylenol) 650 mg PO Q4H PRN PRN Reason: Headache/Fever or Pain Last Admin: 10/08/17 16:30 Dose: 650 mg Hydrocodone Bitart/Acetaminophen ([place] 5/325) 1 tab PO Q4H PRN PRN Reason: Moderate Pain (4-6) Last Admin: 10/08/17 20:43 Dose: 1 tab Al Hydroxide/Mg Hydroxide (Maalox) 30 ml PO Q6H PRN PRN Reason: Heartburn or Indigestion Artificial Tears (Tears Naturale) 0 drop EA EYE PRN PRN PRN Reason: Dry Eyes Bisacodyl (Dulcolax) 10 mg PO DAILYPRN PRN PRN Reason: Constipation Last Admin: 10/09/17 09:24 Dose: 10 mg Calcium Carbonate (Caltrate) 600 mg PO DAILY [facility] Last Admin: 10/09/17 09:02 Dose: 600 mg Cholecalciferol (Vitamin D3) 2,000 units PO DAILY [facility] Last Admin: 10/09/17 09:02 Dose: 2,000 units Coenzyme Q10 (Coenzyme Q10) 100 mg PO DAILY [facility] Last Admin: 10/09/17 09:02 Dose: 100 mg Docusate Sodium (Colace) 100 mg PO DAILYPRN PRN PRN Reason: Constipation Famotidine (Pepcid) 20 mg PO BID [facility] Last Admin: 10/09/17 09:02 Dose: 20 mg Guaifenesin (Robitussin Sf) 200 mg PO Q4H PRN PRN Reason: Cough Hydralazine HCl (Apresoline) 10 mg SLOW IVP Q4H PRN PRN Reason: Systolic BP > 180 Lactulose (Lactulose) 30 gm PO BID PRN PRN Reason: constipation Last Admin: 10/08/17 12:45 Dose: 30 gm Loratadine (Claritin) 10 mg PO DAILYPRN PRN PRN Reason: Sinus Symptoms Magnesium Hydroxide (Milk Of Magnesium) 30 ml PO DAILYPRN PRN PRN Reason: Constipation Last Admin: 10/07/17 17:54 Dose: 30 ml Mineral Oil/White Petrolatum (Eucerin Cream) 0 gm TOP BIDPRN PRN PRN Reason: Dry Skin Morphine Sulfate (Morphine) 2 mg SLOW IVP Q4H PRN PRN Reason: Severe Pain (7-10) Nitrofurantoin Macrocrystals (Macrobid) 100 mg PO [facility] Last Admin: 10/08/17 20:47 Dose: 100 mg Ondansetron HCl (Zofran Odt) 4 mg PO Q6H PRN PRN Reason: Nausea/Vomiting Ondansetron HCl (Zofran) 4 mg IVP Q6H PRN PRN Reason: Nausea/Vomiting Phenol (Chloraseptic [place] 180 Ml Bot) 0 ml PO PRN PRN PRN Reason: Sore Throat Rosuvastatin Calcium (Crestor) 5 mg PO DAILY [facility] Last Admin: 10/09/17 09:02 Dose: 5 mg Senna (Senokot) 2 tab PO HSPRN PRN PRN Reason: Constipation Sodium Chloride ([place] Nasal [place] 0.65%) 0 ml EA NARE QIDPRN PRN PRN Reason: Nasal Congestion Sodium Chloride (Flush - Normal Saline) 10 ml IVF Q12HR [facility] Last Admin: 10/09/17 09:03 Dose: 10 ml Sodium Chloride (Flush - Normal Saline) 10 ml IVF PRN PRN PRN Reason: Saline Flush Tamsulosin HCl (Flomax) 0.4 mg PO DAILY [facility] Last Admin: 10/09/17 09:02 Dose: 0.4 mg Zolpidem Tartrate (Ambien) 5 mg PO HSPRN PRN PRN Reason: Insomnia
[2017-10-09] MEDS: Acetaminophen 325 MG TAB PO PRN (18:26)
[2017-10-09] MEDS: Nitrofurantoin Monohyd/M-Cryst 100 MG CAP PO SCH (20:08)
[2017-10-10] MEDS: Acetaminophen 325 MG TAB PO PRN ×2 (04:42→20:03)
[2017-10-10 05:55] LABS: #Eosinphils 0.1 thou/uL (0.0-0.7); #Lymphocytes 0.7 thou/uL (1.20-3.40); #Monocytes 0.4 thou/uL (0.11-0.59); #Neutrophils 4.1 thou/uL (1.40-6.50); %Basophils 0.4 % (0.0-1.0); %Eosinophils 1.8 % (0.0-10.0); %Lymphocytes 13.8 % (21.0-51.0); %Monocytes 7.6 % (0.0-10.0); %Neutrophils 76.5 % (42.0-75.0); Hemoglobin 7.4 g/dL (14.0-18.0); Mean Corpuscular HGB CONC 34.9 g/dL (32.0-36.0); Mean Corpuscular Hemoglobin 33.9 pg (27.0-31.0); Mean Corpuscular Volume 97.1 fL (78.0-98.0); Mean Platelet Volume 7.8 fL (7.4-10.4); Platelet Count 135 thou/uL (130-400); RBC Distribution Width 18.1 % (11.5-14.5); Red Blood Cell (RBC) Count 2.18 mill/uL (4.70-6.10); White Blood Cell (WBC) Count 5.3 thou/uL (4.8-10.8)
[2017-10-10 06:15] LABS: Anion Gap 9 mmol/L (10-20); BUN (Urea Nitrogen) 13 mg/dL (8.4-25.7); Calc. Creatinine Clearance 127 mL/min (70-130); Calcium 7.7 mg/dL (7.8-10.44); Carbon Dioxide 26 mmol/L (23-31); Chloride 108 mmol/L (98-107); Estimated GFR-MDRD Greater than 90; Glucose 134 mg/dL (83-110); Sodium 139 mmol/L (136-145)
[2017-10-10] MEDS: Rosuvastatin 5 MG TAB PO SCH (09:23)
[2017-10-10] MEDS: Tamsulosin HCl 0.4 MG CAP PO SCH (09:23)
[2017-10-10] MEDS: Famotidine 20 MG TAB PO SCH ×2 (09:23→20:03)
[2017-10-10] MEDS: Ubidecarenone 50 MG CAP PO SCH (09:23)
[2017-10-10] MEDS: HYDROcodone/Acetaminophen 5/325 mg Tablet PO PRN (09:24)
--- NOTE | 2017-10-10 11:10 | PQF ---
CLINICAL DOCUMENTATION IMPROVEMENT CLARIFICATION FORM: ICD-10 Updated PLEASE DO AN ADDENDUM TO THE PROGRESS NOTE WITH ANY DOCUMENTATION UPDATES OR ADDITIONS AND CARRY THROUGH TO DC SUMMARY. THANK YOU. DATE: 10/10 ATTN: DR. Noemi PURDY Please exercise your independent, professional judgment in responding to the clarification form. Clinical indicators are provided on the bottom of this form for your review. Please check appropriate box(s): [ x ] Subcapsular Hemorrhage of Kidney w/perinephric hematoma is a complication of recent surgery [ ] Subcapsular Hemorrhage of Kidney w/perinephric hematoma is not a complication of recent surgery [ ] Other diagnosis [ ] Unable to determine CLINICAL INDICATORS - SIGNS / SYMPTOMS / LABS H&P DOCUMENTATION 10/07: HX PRESENT ILLNESS: ...ON 10/06/2017 PT UNDERWENT R- SIDED EXTRACORPOREAL SHOCK WAVE LITHOTRIPSY, CYSTOSCOPY & REMOVAL OF THE STENT ON THE R SIDE. PT WENT HOME & SUBSEQUENTLY AFTER NOON TIME, HE WAS HAVING UNBEARABLE PAIN & THAT IS WHY HE REQUIRED TO GO TO LOCAL ER. THE PT HAD CT ABDOMEN & PELVIS WHICH SHOWED LITHOTRIPSY CHANGES W/A MODERATE SIZE R PERINEPHRIC SPACE HEMATOMA & A LARGE SUBCAPSULAR RENAL HEMORRHAGE. IMPRESSION: R SUBCAPSULAR BLEEDING & PERINEPHRIC HEMATOMA, S/P EXTRACORPOREAL SHOCK WAVE LITHOTRIPSY RISK FACTORS: RIGHT SIDED EXTRACORPOREAL SHOCK WAVE LITHOTRIPSY, CYSTOSCOPY & STENT REMOVAL () ACUTE BLOOD LOSS ANEMIA HEMATURIA TREATMENT: UROLOGY CONSULT IVF (NS 10/07 - ) PO ANTIBIOTIC (MACROBID 10/07 - PRESENT) THANK YOU! Martha (This form is maintained as a part of the permanent medical record) 2014 [employer]. All Rights Reserved Martha Grande RN, BSN [email or web address] Office: [phone] [facility]
[2017-10-10 12:45] LABS: Bilirubin Negative (Negative); Blood, Urine Large (Negative); Clarity CLOUDY (Clear); Glucose, Urine (Dipstick) Negative (Negative); Leukocyte Negative (Negative); Nitrite Negative (Negative); Protein, Urine (Dipstick) 30 mg/dL (Neg-Trace); Specific Gravity, Urine 1.023 (1.002-1.036); pH, Urine 6.5 (5.0-9.0)
[2017-10-10 12:47] LABS: Bacteria/HPF None Seen HPF (None Seen); Hyaline Casts/LPF 0-3 HYALINE CAST LPF (0-3 Hyaline); Pathc Cast-AUWi Flag 0.58 (0-2.49); RBC/HPF GREATER THAN 50-TNTC HPF (0-3); Squamous Epithelial 0-3 HPF (0-3)
[2017-10-10] MEDS ORDERED: Ciprofloxacin 500 MG TAB PO SCH (13:30)
--- NOTE | 2017-10-10 14:27 | PDOC.PN ---
- Subjective Encounter Start Date: 10/10/17 Encounter Start Time: 10:30 Subjective: pt up in bed has some pain on ambulation to his right side - Objective Vital Signs & Weight: Vital Signs (12 hours) Temp Pulse Resp BP BP Pulse Ox 10/10/17 11:00 98.7 F 82 20 161/74 H 98 10/10/17 08:00 97.5 F L 77 18 117/74 98 10/10/17 05:08 100.9 F H 79 18 128/76 93 L Weight Admit Weight 240 lb 4 oz Weight 240 lb 6 oz I&O: 10/09/17 10/10/17 10/11/17 06:59 06:59 06:59 Intake Total 1370 350 Output Total 600 300 Balance 770 50 Result Diagrams: 10/10/17 04:38 10/10/17 04:38 Phys Exam - Physical Examination HEENT: PERRLA, moist MMs, sclera anicteric, TM's clear, oral pharynx no lesions , 2+ tonsils Neck: no nodes, no JVD, supple, full ROM Respiratory: no wheezing, no rales, no rhonchi, wheezing present, clear to auscultation bilateral Cardiovascular: RRR, no significant murmur, no rub, gallop, irregular Gastrointestinal: soft, non-tender, no distention, positive bowel sounds mild pain to left flank area Dx/Plan (1) Acute blood loss anemia Code(s): D62 - ACUTE POSTHEMORRHAGIC ANEMIA Status: Acute Comment: h/h stable. (2) Constipated Code(s): K59.00 - CONSTIPATION, UNSPECIFIED Status: Acute (3) Hematuria Code(s): R31.9 - HEMATURIA, UNSPECIFIED Status: Acute (4) Subcapsular Hemorrhage of Kidney Status: Acute - Plan pt's hh is low today 7.4 will check another hh later today and transfuse -: as needed. pt on cipro. pain has improved. * . Review of Systems - Review of Systems ENT: negative: Ear Pain, Ear Discharge, Nose Pain, Nose Discharge, Nose Congestion, Mouth Pain, Mouth Swelling, Throat Pain, Throat Swelling, Other Respiratory: negative: Cough, Dry, Shortness of Breath, Hemoptysis, SOB with Excertion, Pleuritic Pain, Sputum, Wheezing Cardiovascular: negative: chest pain, palpitations, orthopnea, paroxysmal nocturnal dyspnea, edema, light headedness, other Gastrointestinal: negative: Nausea, Vomiting, Abdominal Pain, Diarrhea, Constipation, Melena, Hematochezia, Other - Medications/Allergies Allergies/Adverse Reactions: Allergies Allergy/AdvReac Type Severity Reaction Status Date / Time No Known Allergies Allergy Verified 10/07/17 02:49 Medications: Current Medications Acetaminophen (Tylenol) 650 mg PO Q4H PRN PRN Reason: Headache/Fever or Pain Last Admin: 10/10/17 04:42 Dose: 650 mg Hydrocodone Bitart/Acetaminophen ([place] 5/325) 1 tab PO Q4H PRN PRN Reason: Moderate Pain (4-6) Last Admin: 10/10/17 09:24 Dose: 1 tab Al Hydroxide/Mg Hydroxide (Maalox) 30 ml PO Q6H PRN PRN Reason: Heartburn or Indigestion Artificial Tears (Tears Naturale) 0 drop EA EYE PRN PRN PRN Reason: Dry Eyes Bisacodyl (Dulcolax) 10 mg PO DAILYPRN PRN PRN Reason: Constipation Last Admin: 10/09/17 09:24 Dose: 10 mg Calcium Carbonate (Caltrate) 600 mg PO DAILY [facility] Last Admin: 10/09/17 09:02 Dose: 600 mg Cholecalciferol (Vitamin D3) 2,000 units PO DAILY [facility] Last Admin: 10/10/17 09:22 Dose: 2,000 units Ciprofloxacin (Cipro) 500 mg PO 0600,2000 [facility] Ciprofloxacin (Cipro) 500 mg PO NOW [facility] Stop: 10/10/17 15:00 Coenzyme Q10 (Coenzyme Q10) 100 mg PO DAILY [facility] Last Admin: 10/10/17 09:23 Dose: 100 mg Docusate Sodium (Colace) 100 mg PO DAILYPRN PRN PRN Reason: Constipation Last Admin: 10/09/17 20:08 Dose: 100 mg Famotidine (Pepcid) 20 mg PO BID [facility] Last Admin: 10/10/17 09:23 Dose: 20 mg Guaifenesin (Robitussin Sf) 200 mg PO Q4H PRN PRN Reason: Cough Hydralazine HCl (Apresoline) 10 mg SLOW IVP Q4H PRN PRN Reason: Systolic BP > 180 Lactulose (Lactulose) 30 gm PO BID [facility] Last Admin: 10/10/17 09:26 Dose: 30 gm Loratadine (Claritin) 10 mg PO DAILYPRN PRN PRN Reason: Sinus Symptoms Magnesium Hydroxide (Milk Of Magnesium) 30 ml PO DAILYPRN PRN PRN Reason: Constipation Last Admin: 10/07/17 17:54 Dose: 30 ml Mineral Oil/White Petrolatum (Eucerin Cream) 0 gm TOP BIDPRN PRN PRN Reason: Dry Skin Morphine Sulfate (Morphine) 2 mg SLOW IVP Q4H PRN PRN Reason: Severe Pain (7-10) Ondansetron HCl (Zofran Odt) 4 mg PO Q6H PRN PRN Reason: Nausea/Vomiting Ondansetron HCl (Zofran) 4 mg IVP Q6H PRN PRN Reason: Nausea/Vomiting Phenol (Chloraseptic [place] 180 Ml Bot) 0 ml PO PRN PRN PRN Reason: Sore Throat Rosuvastatin Calcium (Crestor) 5 mg PO DAILY [facility] Last Admin: 10/10/17 09:23 Dose: 5 mg Senna (Senokot) 2 tab PO HSPRN PRN PRN Reason: Constipation Sodium Chloride ([place] Nasal [place] 0.65%) 0 ml EA NARE QIDPRN PRN PRN Reason: Nasal Congestion Sodium Chloride (Flush - Normal Saline) 10 ml IVF Q12HR [facility] Last Admin: 10/10/17 09:26 Dose: 10 ml Sodium Chloride (Flush - Normal Saline) 10 ml IVF PRN PRN PRN Reason: Saline Flush Tamsulosin HCl (Flomax) 0.4 mg PO DAILY [facility] Last Admin: 10/10/17 09:23 Dose: 0.4 mg Zolpidem Tartrate (Ambien) 5 mg PO HSPRN PRN PRN Reason: Insomnia
[2017-10-10] MEDS: Calcium Carbonate 600 MG TAB PO SCH (14:53)
[2017-10-10 17:01] LABS: Hemoglobin 8.7 g/dL (14.0-18.0)
[2017-10-10] MEDS: Ciprofloxacin 500 MG TAB PO SCH (20:03)
[2017-10-11 05:12] LABS: Anion Gap 12 mmol/L (10-20); BUN (Urea Nitrogen) 14 mg/dL (8.4-25.7); Calc. Creatinine Clearance 122 mL/min (70-130); Carbon Dioxide 25 mmol/L (23-31); Chloride 107 mmol/L (98-107); Estimated GFR-MDRD Greater than 90; Glucose 141 mg/dL (83-110); Potassium 4.1 mmol/L (3.5-5.1); Sodium 140 mmol/L (136-145)
[2017-10-11] MEDS: Acetaminophen 325 MG TAB PO PRN (06:01)
[2017-10-11] MEDS: Ciprofloxacin 500 MG TAB PO SCH (06:01)
[2017-10-11 06:05] LABS: Band 8 % (5-11); Hemoglobin 8.4 g/dL (14.0-18.0); Hypochromia SLIGHT = 6-15 cells (100X) (0-5/hpf); Lymphocytes 12 % (21-51); MDiff Complete? YES; Mean Corpuscular HGB CONC 34.4 g/dL (32.0-36.0); Mean Corpuscular Hemoglobin 33.9 pg (27.0-31.0); Mean Corpuscular Volume 98.4 fL (78.0-98.0); Mean Platelet Volume 7.2 fL (7.4-10.4); Monocytes 11 % (0-10); Neutrophil 69 % (42-75); PLT Morphology Comment Appears Adequate; Platelet Count 178 thou/uL (130-400); RBC Distribution Width 18.5 % (11.5-14.5); Red Blood Cell (RBC) Count 2.48 mill/uL (4.70-6.10); White Blood Cell (WBC) Count 7.2 thou/uL (4.8-10.8)
[2017-10-11 07:28] VITALS: BP 129/67; TEMP 98.3
[2017-10-11] MEDS: Famotidine 20 MG TAB PO SCH (07:56)
[2017-10-11] MEDS: Tamsulosin HCl 0.4 MG CAP PO SCH (07:56)
[2017-10-11] MEDS: Ubidecarenone 50 MG CAP PO SCH (07:56)
[2017-10-11] MEDS: Rosuvastatin 5 MG TAB PO SCH (07:56)
[2017-10-11] MEDS: Calcium Carbonate 600 MG TAB PO SCH (07:57)
--- NOTE | 2017-10-13 01:12 | DIS ---
DATE OF ADMISSION: 10/07/2017 DATE OF DISCHARGE: 10/11/2017 DISCHARGE DIAGNOSES: As of the followin. Acute blood loss anemia. 2. Subcapsular hemorrhage of the kidney, most likely secondary to post-procedural complication. 3. Constipation. 4. Hematuria. 5. Nephrolithiasis. HOSPITAL COURSE: The patient is a pleasant 72-year-old male who had lithotripsy done. On 10/06/2017 , underwent a right-sided extra corporeal shock wave lithotripsy and also he had a cystoscopy with re moval of the right-sided stent by Urology. The patient then went home. Subsequently, that noon, he started having unbearable pain on his right side. He came into the ER for further evaluation. The p atient also had some significant amount of hematuria. He did drop his hemoglobin and hematocrit to a bout 7.3. However, over 24 hours, he maintained stable hemoglobin and hematocrit in the mid 8s, last around discharge was 8.4. Patient will follow up with primary care and also with Urology. The sharon ent was put on antibiotics prophylactically given his recent procedure. PHYSICAL EXAMINATION: VITAL SIGNS: Temperature was 98.3, 83, 20, 94% on room air, 129/70. GENERAL: He is awake, alert, and oriented x3. Does not appear in any apparent distress. CARDIOVASCULAR: S1, S2 present. No murmurs, rubs or gallops. ABDOMEN: Soft, nontender. Bowel sounds present x2. EXTREMITIES: No edema. Pedal pulses are present x2. DISCHARGE MEDICATIONS: The patient's discharge home medications are as of the following; tamsulosin 0.4 mg daily, Crestor 5 mg daily, aspirin 81 mg daily, Cipro 500 mg p.o. b.i.d., vitamin D3 2000 unit s p.o. daily. Again, he will follow up with Urology in 1-2 weeks and also he will follow up with primary care harshal sanchez
== END 2017-10-11 11:38 | disposition home or self-care (01) | DRG 920 ==
LOC: ERS 21:26 → T4-B 10-07 00:30 → OBSVTOIN 10-08 12:20
PROVIDERS: ADMIT Hospitalist; ATTEND Hospitalist
DX: N99.820 Postprocedural hemorrhage of a genitourinary system organ or structure following a genitourinary system procedure (principal); D62 Acute posthemorrhagic anemia; C79.51 Secondary malignant neoplasm of bone; E87.2 Acidosis; K59.00 Constipation, unspecified; R31.9 Hematuria, unspecified; N20.0 Calculus of kidney; D69.6 Thrombocytopenia, unspecified; Z85.46 Personal history of malignant neoplasm of prostate; E78.5 Hyperlipidemia, unspecified; E55.9 Vitamin D deficiency, unspecified; E66.9 Obesity, unspecified; Z68.30 Body mass index [BMI] 30.0-30.9, adult; R31.0 Gross hematuria; I10 Essential (primary) hypertension; K57.90 Diverticulosis of intestine, part unspecified, without perforation or abscess without bleeding
CPT/HCPCS: 36415; 74018; 80048; 81003; 81015; 83605; 85014; 85018; 85025; 85027; 85576; 85610; 85730; 86850; 86900; 86901; 87086; 96361; 96374; A4216; C1758; J1100; J2001; J2250; J2405; J2704; J3010; Q9961

== ENCOUNTER 2018-12-01 09:44 | Outpatient (CLI) | payer MEDICARE ==
[2018-12-01 11:08] LABS: #Eosinphils 0.1 thou/uL (0.0-0.7); #Lymphocytes 1.4 thou/uL (1.20-3.40); #Monocytes 0.6 thou/uL (0.11-0.59); #Neutrophils 3.7 thou/uL (1.40-6.50); %Basophils 0.2 % (0.0-1.0); %Eosinophils 2.5 % (0.0-10.0); %Lymphocytes 23.7 % (21.0-51.0); %Monocytes 9.9 % (0.0-10.0); %Neutrophils 63.6 % (42.0-75.0); Hemoglobin 12.6 g/dL (14.0-18.0); Mean Corpuscular HGB CONC 34.1 g/dL (32.0-36.0); Mean Corpuscular Hemoglobin 32.9 pg (27.0-31.0); Mean Corpuscular Volume 96.3 fL (78.0-98.0); Mean Platelet Volume 8.9 fL (7.4-10.4); Platelet Count 159 thou/uL (130-400); Red Blood Cell (RBC) Count 3.84 mill/uL (4.70-6.10); White Blood Cell (WBC) Count 5.8 thou/uL (4.8-10.8)
[2018-12-01 11:36] LABS: ALT (SGPT) 20 U/L (8-55); AST (SGOT) 23 U/L (5-34); Albumin 4.1 g/dL (3.4-4.8); Alkaline Phosphatase 41 U/L (40-150); Anion Gap 11 mmol/L (10-20); BUN (Urea Nitrogen) 13 mg/dL (8.4-25.7); Bilirubin, Direct 0.3 mg/dL (0.1-0.3); Bilirubin, Total 0.6 mg/dL (0.2-1.2); Calc. Creatinine Clearance 0 mL/min (70-130); Calcium 8.5 mg/dL (7.8-10.44); Carbon Dioxide 25 mmol/L (23-31); Chloride 107 mmol/L (98-107); Estimated GFR-MDRD Greater than 90; Globulin 2.7 g/dL (2.4-3.5); Glucose 77 mg/dL (83-110); Potassium 3.9 mmol/L (3.5-5.1); Protein, Total 6.8 g/dL (5.8-8.1); Sodium 139 mmol/L (136-145)
--- NOTE | 2018-12-02 16:47 | EKG ---
Test Reason : Blood Pressure : / mmHG Vent. Rate : 061 BPM Atrial Rate : 061 BPM P-R Int : 248 ms QRS Dur : 104 ms QT Int : 426 ms P-R-T Axes : 040 003 024 degrees QTc Int : 428 ms Sinus rhythm with 1st degree A-V block Incomplete right bundle branch block Borderline ECG No previous ECGs available Confirmed by DR. Noemi MADDEN ([id number]) on 12/02/2018 4:47:21 PM Referred By: ROLY Confirmed By:DR. Noemi MADDEN
== END 2018-12-01 09:45 | disposition home or self-care (01) ==
LOC: LABBT 09:44
PROVIDERS: ATTEND Surgery
DX: Z01.818 Encounter for other preprocedural examination (principal); K80.20 Calculus of gallbladder without cholecystitis without obstruction
CPT/HCPCS: 80053; 80076; 85025; 93005; 93010

== ENCOUNTER 2018-12-11 06:03 | Day surgery (SDC) | payer MEDICARE ==
[2018-12-01 10:10] VITALS: BMI 31.0
[2018-12-11] MEDS ORDERED: Sodium Chloride 0.9% 100 ML ONE (07:15)
[2018-12-11] MEDS ORDERED: cefOXitin 2 GM VIAL ONE (07:15)
[2018-12-11] MEDS ORDERED: Fentanyl 100 MCG/2 ML VIAL ONE (07:19)
[2018-12-11] MEDS ORDERED: Bupivacaine/Epinephrine 0.25% 30 ML VIAL ONE (07:48)
[2018-12-11] MEDS ORDERED: HYDROcodone/Acetaminophen 5/325 mg Tablet ONE (09:59)
[2018-12-11] MEDS ORDERED: Glycopyrrolate 0.2 MG/ML 5 ML SYRINGE ONE (10:08)
[2018-12-11] MEDS ORDERED: Ketorolac Tromethamine 30 MG/ML VIAL ONE (10:08)
[2018-12-11] MEDS ORDERED: Rocuronium Bromide 10 MG/ML (10ML VIAL) ONE (10:08)
[2018-12-11] MEDS ORDERED: Dexamethasone 20 MG/5 ML VIAL ONE (10:08)
[2018-12-11] MEDS ORDERED: PROPOFOL 200 MG/20 ML VIAL ONE (10:08)
[2018-12-11] MEDS ORDERED: Ondansetron PF 4 MG/2 ML Vial ONE (10:08)
[2018-12-11] MEDS ORDERED: Lidocaine 1% PF 5 ML VIAL ONE (10:08)
--- NOTE | 2018-12-11 13:36 | OP ---
DATE OF PROCEDURE: 12/11/2018 PREOPERATIVE DIAGNOSIS: Symptomatic cholelithiasis. PROCEDURE PERFORMED: Laparoscopic cholecystectomy. INDICATIONS FOR PROCEDURE: The patient is a 73-year-old male, who has been having epigastric pain radiating to the back. Ultrasound showed cholelithiasis findings. There were quite a bit of adhesions to the gallbladder suggesting previous inflammation. The cystic duct was small caliber. DESCRIPTION OF PROCEDURE: After informed consent was obtained, the patient was taken to the operating room, given general endotracheal anesthesia, and placed in supine position. Abdomen was prepped and draped in usual fashion. Local anesthesia was infiltrated subcutaneously and deep. A subumbilical incision was performed. Subcu was divided sharply. The fascia was grasped, and 2 stay sutures of 0 Vicryl were placed in either side of midline. Midline was incised. Digital palpation revealed no local adhesions. A blunt 12 mm trocar was inserted. Pneumoperitoneum was created to a pressure of 15 mmHg. A 0-degree laparoscope was inserted, and under direct vision, three 5 mm ports were placed subcostally. Gallbladder was grasped and advanced superiorly. The adhesions were taken down using blunt and sharp dissection. The peritoneum was opened distally to allow dissection of the cystic duct and artery in critical view. The artery and duct were triply ligated with hemoclips and divided. The gallbladder was removed from its fossa utilizing electrocautery. It was placed in Endosac and removed from the abdomen in the Endosac through the umbilical port. Hemostasis was achieved utilizing electrocautery as well as Luis Antonio powder. The trocars and retractors were removed. The fascia was closed with interrupted 0 Vicryl suture. The skin was closed with interrupted 4-0 Rapide. Dermabond was applied. The patient tolerated the procedure well, transferred to Recovery in good condition. Sponge and needle count verified correct x2. Job ID: [id number]
== END 2018-12-11 10:40 | disposition home or self-care (01) ==
LOC: SDC 06:03
PROVIDERS: ATTEND Surgery
PROC: 0FT44ZZ Resection of Gallbladder, Percutaneous Endoscopic Approach (ICD-10-PCS; principal; 2018-12-11)
DX: K80.10 Calculus of gallbladder with chronic cholecystitis without obstruction (principal); E78.00 Pure hypercholesterolemia, unspecified; Z79.899 Other long term (current) drug therapy; Z79.82 Long term (current) use of aspirin
CPT/HCPCS: 88304; J0131; J0694; J3010; J3490

== ENCOUNTER 2020-05-18 12:37 | Outpatient (CLI) | payer MEDICARE ==
[2020-05-18] MEDS ORDERED: Magnevist 469MG/ML 20 ML VIAL ONE (13:29)
[2020-05-18 14:00] LABS: Estimated GFR-MDRD - POC Greater than 90
== END 2020-05-18 12:38 | disposition home or self-care (01) ==
LOC: BICMRI 12:37
PROVIDERS: ATTEND Radiology Radiation Oncology
DX: C61 Malignant neoplasm of prostate (principal); C79.51 Secondary malignant neoplasm of bone
CPT/HCPCS: 72157; 82565; A9579

== ENCOUNTER 2020-08-30 11:09 | Outpatient (CLI) | payer MEDICARE | END 2020-08-30 11:10 | disposition home or self-care (01) | LOC: NM 11:09 | PROVIDERS: ATTEND Radiology Radiation Oncology | DX: C79.51 Secondary malignant neoplasm of bone (principal); C61 Malignant neoplasm of prostate | CPT/HCPCS: 78306; A9503 ==

== ENCOUNTER 2020-12-21 09:58 | Outpatient (CLI) | payer MEDICARE | END 2020-12-21 09:59 | disposition home or self-care (01) | LOC: NM 09:58 | PROVIDERS: ATTEND Internal Medicine Hematology & Oncology | DX: C61 Malignant neoplasm of prostate (principal); C79.51 Secondary malignant neoplasm of bone; M25.512 Pain in left shoulder | CPT/HCPCS: 73030; 78306; A9503 ==

== ENCOUNTER 2021-01-15 10:38 | Day surgery (SDC) | payer MEDICARE ==
[2021-01-15] MEDS ORDERED: Acetaminophen 500 MG TAB PO SCH (11:45)
[2021-01-15] MEDS ORDERED: diphenhydrAMINE 25 MG CAP PO SCH (11:45)
[2021-01-15 14:33] VITALS: BP 143/67; TEMP 98.2
== END 2021-01-15 14:34 | disposition home or self-care (01) ==
LOC: ONC/OP 10:38
PROVIDERS: ATTEND Internal Medicine Hematology & Oncology
PROC: 30233N1 Transfusion of Nonautologous Red Blood Cells into Peripheral Vein, Percutaneous Approach (ICD-10-PCS; principal; 2021-01-15)
DX: D64.9 Anemia, unspecified (principal); D69.6 Thrombocytopenia, unspecified
CPT/HCPCS: 36430; 86850; 86900; 86901; P9016

== ENCOUNTER 2021-02-21 08:07 | Day surgery (SDC) | payer MEDICARE ==
[2021-02-21] MEDS ORDERED: diphenhydrAMINE 25 MG CAP PO SCH (09:00)
[2021-02-21] MEDS ORDERED: Acetaminophen 500 MG TAB PO SCH (09:00)
[2021-02-21] MEDS ORDERED: Acetaminophen 500 MG TAB ONE (09:09)
[2021-02-21] MEDS ORDERED: diphenhydrAMINE 25 MG CAP ONE (09:09)
[2021-02-21] MEDS ORDERED: Sodium Chloride 0.9% 10 ML ONE ×2 (09:09)
[2021-02-21 15:07] VITALS: BP 161/70; TEMP 98.4
== END 2021-02-21 15:07 | disposition home or self-care (01) ==
LOC: ONC/OP 08:07
PROVIDERS: ATTEND Internal Medicine Hematology & Oncology
PROC: 30233N1 Transfusion of Nonautologous Red Blood Cells into Peripheral Vein, Percutaneous Approach (ICD-10-PCS; principal; 2021-02-21)
DX: D64.9 Anemia, unspecified (principal); D69.6 Thrombocytopenia, unspecified
CPT/HCPCS: 36430; 86850; 86900; 86901; P9016

== ENCOUNTER 2021-05-02 07:47 | Day surgery (SDC) | payer MEDICARE ==
[2021-05-02] MEDS ORDERED: Sodium Chloride 0.9% 10 ML ONE (08:10)
[2021-05-02] MEDS ORDERED: diphenhydrAMINE 25 MG CAP ONE (08:29)
[2021-05-02] MEDS ORDERED: Acetaminophen 500 MG TAB ONE (08:29)
[2021-05-02 13:43] VITALS: BP 138/67; TEMP 98
== END 2021-05-02 13:44 | disposition home or self-care (01) ==
LOC: ONC/OP 07:47
PROVIDERS: ATTEND Internal Medicine Hematology & Oncology
PROC: 30233N1 Transfusion of Nonautologous Red Blood Cells into Peripheral Vein, Percutaneous Approach (ICD-10-PCS; principal; 2021-05-02)
DX: D64.9 Anemia, unspecified (principal)
CPT/HCPCS: 36430; 86850; 86900; 86901; P9016